=== PATIENT | male | born 1965 | race Caucasian/White ===

== ENCOUNTER 2021-04-21 19:20 | Outpatient (CLI) | payer OTHER | END 2021-04-21 23:59 | disposition short-term general hospital (02) | LOC: EMS 19:20 | DX: R42 Dizziness and giddiness (principal); R53.1 Weakness; R68.83 Chills (without fever) | CPT/HCPCS: A0425; A0427 ==

== ENCOUNTER 2021-04-25 07:14 | Outpatient (CLI) | payer OTHER ==
--- NOTE | 2021-04-25 15:15 | Ultrasound Report ---
PROCEDURE: Aorta Screening INDICATIONS: SCREENING FOR CARDIOVASCULAR DISEASE TECHNIQUE: Real time scanning was performed of the aorta and iliac arteries, with image documentatio n. COMPARISON: none FINDINGS: Aorta: Proximal aortic diameter measures 2.9 x 2.6 cm. Mid-aorta measures 2.1 x 2.0 cm. Distal aor tic diameter is 1.7 x 1.7 cm. Iliac arteries: Right common iliac artery measures 1.3 x 1.3 cm. Left common iliac artery measures 1.2 x 1.3 cm. IMPRESSION: No aneurysmal dilation. Reviewed by: Carlyn Garcia MD on 04/25/2021 3:14 PM PST Approved by: Carlyn Garcia MD on 04/25/2021 3:14 PM PST Station ID: [id number]
== END 2021-04-25 07:15 | disposition home or self-care (01) ==
LOC: DI 07:14
PROVIDERS: ATTEND Internal Medicine
DX: Z13.6 Encounter for screening for cardiovascular disorders (principal)